=== PATIENT | female | born 1985 | race African-American/Black ===

== ENCOUNTER 2018-01-21 15:35 | Emergency (ER) | payer OTHER ==
[~2018-01-21] VITALS: Ht 160 cm; Wt 97.5 kg
[~2018-01-21 15:35] MED LIST: ACETAMINOPHEN325 M1 PO; ACETAMINOPHEN650 M5 PO; AMOXICILLI400 MG/5 M PO; AMOXICILLIN 50500 M1 PO; AUGMENTIN 500-1 EACH PO; AURALGAN EAR DR14 ML OT; CIPRODEX OTIC7.5 ML OT; CLONIDINE0.1 PO; COLACE 100 MG100 MG PO; COLACE100 MG PO; CORTISPORIN OTI10 M2 OT; HYDROCODON-ACE1 EAC7 PO; IBUPROFEN 600600 M1 PO; IBUPROFEN 800800 M1 PO; IRON325 PO; LANOLIN56 GM; LORTAB 5 MG/5001 TAB PO; NOHOMEMEDICATIONS; NORCO 5-325 TA1 EACH PO; NORVASC5 MG PO; NYQUIL D COLD295 ML; OXYCODONE HCL 55 MG PO; PERCOCET 5-3251 EACH PO; PRENATAL PO; PRENATAL VITAM1 EAC6 PO; PROCARDIA XL90 MG PO; SENNA S TABLET1 EACH PO
[2018-01-21 16:02] LABS: URINE BILIRUBIN NEGATIVE (Negative); URINE BLOOD NEGATIVE (Negative); URINE CLARITY CLEAR; URINE COLOR YELLOW; URINE GLUCOSE-RANDOM* NEGATIVE (Negative); URINE KETONES NEGATIVE (Negative); URINE LEUKOCYTES-REFLEX NEGATIVE (Negative); URINE NITRITE-REFLEX NEGATIVE (Negative); URINE PROTEIN (DIPSTICK) NEGATIVE (Negative); URINE UROBILINOGEN 0.2 E.U./dl (0.2-1.0)
[2018-01-21] MEDS ORDERED: LIORESAL 10 MG10 MG PO (16:11)
[2018-01-21] MEDS ORDERED: MOBIC15 MG PO (16:11)
== END 2018-01-21 16:23 | disposition home or self-care (01) ==
LOC: ER 15:35
PROVIDERS: Physician Assistant
DX: S39.012A Strain of muscle, fascia and tendon of lower back, initial encounter (principal); I10 Essential (primary) hypertension; Z90.49 Acquired absence of other specified parts of digestive tract; X58.XXXA Exposure to other specified factors, initial encounter; Y93.89 Activity, other specified; Y92.89 Other specified places as the place of occurrence of the external cause; Y99.8 Other external cause status

== ENCOUNTER 2018-05-10 19:49 | Emergency (ER) | payer OTHER ==
[~2018-05-10] VITALS: Ht 157.5 cm; Wt 97.5 kg
[~2018-05-10 19:49] MED LIST changes: +LIORESAL 10 MG10 MG PO; +MOBIC15 MG PO
[2018-05-10] MEDS ORDERED: KEFLEX500 M1 PO (20:08)
[2018-05-10 20:43] LABS: URINE BILIRUBIN NEGATIVE (Negative); URINE BLOOD NEGATIVE (Negative); URINE CLARITY CLEAR; URINE COLOR YELLOW; URINE GLUCOSE-RANDOM* NEGATIVE (Negative); URINE KETONES NEGATIVE (Negative); URINE LEUKOCYTES-REFLEX NEGATIVE (Negative); URINE NITRITE-REFLEX NEGATIVE (Negative); URINE PROTEIN (DIPSTICK) NEGATIVE (Negative); URINE SPECIFIC GRAVITY 1.025 (1.005-1.035); URINE UROBILINOGEN 0.2 E.U./dl (0.2-1.0)
[2018-05-10 21:22] LABS: ABSOLUTE NEUTROPHILS 4.5 thou/uL (1.4-8.2); BASOPHILS 1.5 % (0.0-2.0); EOSINOPHILS 1.5 % (0.0-3.0); HEMATOCRIT 36.3 % (37.0-47.0); LYMPHOCYTES 34.2 % (24.0-44.0); MCH 23.6 pg (26.0-34.0); MCV 71.3 fL (80.0-100.0); MONOCYTES 7.4 % (1.0-8.0); PLATELET COUNT 224 thou/uL (150-400); POLYS 55.4 % (36.0-66.0); RBC 5.09 mil/uL (4.20-5.00); RDW 13.4 % (10.5-14.5)
[2018-05-10 21:30] LABS: CALCIUM 9.2 mg/dL (8.5-10.1); POTASSIUM 3.7 mmol/L (3.5-5.1)
[2018-05-10 22:15] VITALS: BP 150/92
== END 2018-05-10 22:22 | disposition home or self-care (01) ==
LOC: ER 19:49
PROVIDERS: Emergency Medicine
DX: B08.5 Enteroviral vesicular pharyngitis (principal); R53.83 Other fatigue; I10 Essential (primary) hypertension; Z90.49 Acquired absence of other specified parts of digestive tract

== ENCOUNTER → 2020-05-26 | Outpatient (CLI) | payer OTHER ==
[~2020-05-26] MED LIST changes: +KEFLEX500 M1 PO
== END ==
LOC: LAB 12:41
PROVIDERS: ATTEND Nurse Practitioner
DX: U07.1 COVID-19 (principal)

== ENCOUNTER 2020-08-30 17:28 | Emergency (ER) | payer OTHER ==
[~2020-08-30] VITALS: Ht 160 cm; Wt 54.4 kg
[2020-08-30 18:01] LABS: URINE BILIRUBIN NEGATIVE (Negative); URINE BLOOD 3+ (Negative); URINE CLARITY CLEAR; URINE COLOR YELLOW; URINE GLUCOSE-RANDOM* TRACE (Negative); URINE KETONES NEGATIVE (Negative); URINE LEUKOCYTES-REFLEX TRACE (Negative); URINE NITRITE-REFLEX NEGATIVE (Negative); URINE PROTEIN (DIPSTICK) NEGATIVE (Negative); URINE SPECIFIC GRAVITY >= 1.030 (1.005-1.035); URINE UROBILINOGEN 0.2 E.U./dl (0.2-1.0)
[2020-08-30 18:14] LABS: SQUAMOUS 0-3 Few /LPF (0-3); URINE RBC >20 Many /HPF (0-2)
[2020-08-30 18:15] LABS: BACTERIA-REFLEX 1-9 Few /HPF (None Seen); CASTS None Seen /LPF (None Seen); CRYSTALS None Seen /LPF (None Seen); URINE WBC-REFLEX 0-5 Rare /HPF (0-5)
[2020-08-30 18:48] LABS: ABSOLUTE NEUTROPHILS 5.6 thou/uL (1.4-8.2); BASOPHILS 0.9 % (0.0-2.0); EOSINOPHILS 0.7 % (0.0-3.0); HEMATOCRIT 23.6 % (37.0-47.0); HEMOGLOBIN 7.6 gm/dL (12.0-15.0); LYMPHOCYTES 22.1 % (24.0-44.0); MCHC 32.1 g/dL (28.0-37.0); MCV 59.3 fL (80.0-100.0); MONOCYTES 8.3 % (1.0-8.0); PLATELET COUNT 255 thou/uL (150-400); RBC 3.99 mil/uL (4.20-5.00); RDW 24.9 % (10.5-14.5); WBC 8.2 thou/uL (4.0-11.0)
[2020-08-30 19:02] LABS: ALBUMIN 3.5 g/dL (3.4-5.0); ANION GAP 11 mmol/L (7-16); BUN 11 mg/dL (7-18); CHLORIDE 106 mmol/L (98-107); CO2 23 mmol/L (21-32); CREATININE 0.8 mg/dL (0.6-1.0); GLUCOSE 93 mg/dL (74-106); LIPASE 102 U/L (73-393); SGOT 24 U/L (15-37); SGPT 24 U/L (30-65); SODIUM 140 mmol/L (136-145); TOTAL BILIRUBIN < 0.1 mg/dL (0.2-1.0); TOTAL PROTEIN 6.9 g/dL (6.4-8.2)
[2020-08-30 19:24] LABS: ANISOCYTOSIS 3+; HYPOCHROMASIA 3+; TARGET CELLS 3+
[2020-08-30 19:35] LABS: CALCIUM 8.4 mg/dL (8.5-10.1)
[2020-08-30] MEDS ORDERED: NORCO 5-325 TA1 EAC2 PO (20:25)
[2020-08-30] MEDS ORDERED: SLOW FE142 MG PO (20:25)
[2020-08-30 20:54] VITALS: BP 101/75
== END 2020-08-30 20:55 | disposition home or self-care (01) ==
LOC: ER 17:28
PROVIDERS: Emergency Medicine; Physician Assistant
DX: O02.1 Missed abortion (principal); O99.011 Anemia complicating pregnancy, first trimester; O46.91 Antepartum hemorrhage, unspecified, first trimester; O10.911 Unspecified pre-existing hypertension complicating pregnancy, first trimester; Z98.890 Other specified postprocedural states; Z90.49 Acquired absence of other specified parts of digestive tract; Z3A.01 Less than 8 weeks gestation of pregnancy